=== PATIENT | female | born 1955 | race African-American/Black ===

== ENCOUNTER 2017-08-03 21:18 | Emergency (ER) | payer SELFPAY ==
[~2017-08-03] VITALS: Ht 162.6 cm; Wt 68.0 kg
[~2017-08-03 21:18] MED LIST: ACETAMINOPHEN-1 EAC2 ORAL; KLONOPIN0.5 MG ORAL; LIPITOR10 MG ORAL; MELOXICAM15 MG PO; METFORMIN HCL500 M1 ORAL; PHENERGAN25 M1 ORAL; ROBAXIN-750750 MG PO; SOMA350 MG PO; TRAZODONE HCL50 MG PO; XANAX1 MG ORAL
[2017-08-03 21:37] VITALS: BP 129/80
[2017-08-03] MEDS ORDERED: Tylenol #3 tab (300mg/30mg) ORAL ONE (21:45)
--- NOTE | 2017-08-03 21:45 | Emergency Room Report ---
History of Present Illness General Chief Complaint: Multiple Trauma/Fall Source: Patient, Medical Record Present Illness HPI This is a 62-year-old female with history of chronic pain. She no longer seen a pain specialist that she takes Soma and Klonopin at home. She presents with chief complaint of left knee pain. [place] the [place] and slipped on a wet spot and landed on her left knee. Complaining of left knee pain. Pain is 9 out of 10. Worse with walking. Also exacerbating her back pain and neck pain. No other trauma. Did not pass out. Able to walk initially but now painful with walking. Allergies: Coded Allergies: HYDROCODONE (Verified Allergy, Intermediate, 01/05/13) N/V PENICILLINS (Verified Allergy, Unknown, 01/05/13) Patient History Past Medical History: see triage record, old chart reviewed Past Surgical History: other Pertinent Family History: none Social History: Denies: smoking Now: No Immunizations: other Reviewed Nursing Documentation: PMH: Agreed; PSxH: Agreed Nursing Documentation-PMH Past Medical History: No History, Except For Hx Cardiac Problems: Yes - High cholesterol Hx Diabetes: Yes Hx Cancer: No Hx Gastrointestinal Problems: No History Of Psychiatric Problem: Yes - Depression Hx Neurological Problems: No Review of Systems Eye: Denies: eye pain, blurred vision ENT: Denies: ear pain, nose congestion, throat swelling Respiratory: Denies: cough, shortness of breath Cardiovascular: Denies: chest pain, palpitations Gastrointestinal: Denies: abdominal pain, diarrhea, nausea, vomiting Musculoskeletal: Reports: back pain, joint pain Skin: Denies: rash Neurological: Denies: headache, numbness Endocrine: Denies: increased thirst, increased urine Hematologic/Lymphatic: Denies: easy bruising All Other Systems: negative except mentioned in HPI Physical Exam Vital Signs Date Time Temp Pulse Resp B/P (MAP) Pulse Ox O2 Delivery O2 Flow Rate FiO2 08/03/17 21:22 98.2 86 17 136/79 98 Room Air 98.2 vitals unremarkable Sp02 EP Interpretation: reviewed, normal General Appearance: well appearing, no apparent distress, alert Head: normocephalic, atraumatic Eyes: bilateral eye PERRL, bilateral eye EOMI ENT: hearing grossly normal, normal pharynx Neck: full range of motion, supple, no meningismus Respiratory: chest non-tender, lungs clear, normal breath sounds Cardiovascular #1: regular rate, rhythm, no murmur Gastrointestinal: normal bowel sounds, non tender, no mass, no organomegaly, no bruit, non-distended Musculoskeletal: back normal, normal range of motion, tender - Over left patella. No deformity. No swelling. FROM Psychiatric: mood/affect normal Skin: warm/dry Procedures Splinting Splinting : Consent: Verbal Location: Left knee Pre-Made Type: SOPHIA wrap Pre-Proc Neuro Vasc Exam: normal Post-Proc Neuro Vasc Exam: normal Patient Tolerated: Well Complications: None Medical Decision Making Diagnostic Impression: Primary Impression: Contusion of knee, left Qualified Codes: S80.02XA - Contusion of left knee, initial encounter Additional Impression: Low back strain Qualified Codes: S39.012A - Strain of muscle, fascia and tendon of lower back , initial encounter ER Course Patient with soft tissue injury secondary to fall. No evidence any fracture dislocation. We'll discharge home. Last Vital Signs Date Time Temp Pulse Resp B/P (MAP) Pulse Ox O2 Delivery O2 Flow Rate FiO2 08/03/17 21:22 98.2 86 17 136/79 98 Room Air 98.2 Status: improved Disposition: HOME, SELF-CARE Condition: Stable Scripts Acetaminophen With Codeine (T#3) (TYLENOL #3 TAB*) Y Tab 1 TAB ORAL Q8H PRN for For Pain, #20 TAB Prov: KAITLYNN JENKINS M.D. 08/03/17 Additional Instructions: Ice pack to the area. Follow-up with your doctor in 7 days. Return if symptom worsen. KAITLYNN JENKINS M.D. August 03, 2017 21:45
[2017-08-03] MEDS ORDERED: Morphine Sulfate 4mg/ml Inj IM ONE (22:15)
[2017-08-03] MEDS ORDERED: ACETAMINOPHEN-1 EAC1 ORAL (23:00)
[2017-08-03 23:15] VITALS: BP 129/80
--- NOTE | 2017-08-04 10:44 | Diagnostic Imaging Report ---
Indication: Pain 3 views of the left knee were obtained. Findings: No acute fracture, malalignment, or joint effusion are identified. Joint space is relatively well-maintained. Impression: Negative for acute injury
== END 2017-08-03 23:15 | disposition home or self-care (01) ==
LOC: EMR 21:58
DX: S80.02XA Contusion of left knee, initial encounter (principal); X58.XXXA Exposure to other specified factors, initial encounter; Y92.9 Unspecified place or not applicable; E11.9 Type 2 diabetes mellitus without complications; F32.9 Major depressive disorder, single episode, unspecified; Z88.0 Allergy status to penicillin; Z88.5 Allergy status to narcotic agent
CPT/HCPCS: 73564; 96372; 99283; J2270